=== PATIENT | female | born 1995 | race Caucasian/White ===

== ENCOUNTER 2016-04-03 12:46 | Emergency (ER) | payer OTHER ==
--- NOTE | 2016-04-03 13:56 | ERRECORD ---
[facility] EMERGENCY RECORD HPI JAW PAIN (SatApr 04, 2016 02:28 AGRE) CHIEF COMPLAINT: Patient presents for evaluation of pain, to the jaw. HISTORIAN: History provided by patient, PAIN OVER BOTH SIDES OF HER JAW AND IT HURTS TO OPEN AND CLOSE. NO TRAUMA. THINKS MAYBE IT IS HER WISDOM TEETH COMING IN. ALSO HAS NASAL CONGESTION WITH CLEAR CORYZA AND FRONTAL HEADACHE. NO OTHER SYMPTOMS. SYMPTOMS BEGAN THIS MORNING. MECHANISM OF INJURY: Unknown mechanism. LOCATION: No localizing symptoms. QUALITY: Pain is dull in nature, described as aching. SEVERITY: Maximum severity of symptoms mild, Currently symptoms are mild. TIME COURSE: Gradual onset of symptoms, There has been no change in the patient's symptoms over time. ASSOCIATED WITH: No associated symptoms. EXACERBATED BY: Patient's condition exacerbated by movement, Patient's condition exacerbated by speaking. RELIEVED BY: Patient's condition relieved by nothing. ROS (SatApr 04, 2016 02:31 AGRE) CONSTITUTIONAL: Historian denies chills, denies fever, denies lethargy, denies malaise. EYES: Historian denies eye pain, denies eye redness. ENT: Historian reports rhinorrhea, denies sinus pain, denies sore throat. CARDIOVASCULAR: Historian denies chest pain, denies dyspnea on exertion. RESPIRATORY: Historian denies cough, denies shortness of breath. GI: Historian denies abdominal pain, denies nausea, denies vomiting. MUSCULOSKELETAL: Historian denies back pain, denies neck pain. SKIN: Negative skin review of systems, Historian denies skin changes, denies skin lesions. NEUROLOGIC: Historian reports headache, denies mental status changes. PSYCHIATRIC: Negative psychiatric review of systems, Historian denies anxiety. PAST MEDICAL HISTORY (12:55 MSPE) MEDICAL HISTORY: Flu vaccine not up to date, Tetanus immunization up to date, Pneumococcal vaccine not up to date, Past medical history includes cardiac history, arrhythmia, supraventricular tachycardia. FEMALE SURGICAL HISTORY: oral surgery, Surgical history of tonsillectomy. PSYCHIATRIC HISTORY: Psychiatric history includes, bipolar disorder. SOCIAL HISTORY: Patient drinks socially, Patient denies drug use, Patient currently uses tobacco, smokes cigarettes, occasional cigarette. &a-1R&a+25V*p+0X*y5636Y*c202B*c15G*c2P*p-0X&a-25V&a+1R Name: Haylie Muro : 1995 F20 MedRec: [id number] AcctNum: [id number] Prepared: SatApr 04, 2016 02:45 by Interface Page 1 of 3 pMD [facility] EMERGENCY RECORD KNOWN ALLERGIES No Known Drug Allergies CURRENT MEDICATIONS (12:52 MSPE) None VITAL SIGNS VITAL SIGNS: BP: 137/81, Pulse: 91, Resp: 18, Temp: 98.5 (Oral), Pain: 1-2, O2 sat: 98 on Room Air, Time: 04/03/2016 12:52. (12:52 MSPE) Resp: 17, Pain: 2, Time: 04/03/2016 13:45. (13:45 BDON) PHYSICAL EXAM CONSTITUTIONAL: Vital signs reviewed, Patient afebrile, Patient appears non toxic, Patient appears pain free, Patient alert and oriented to person, place and time, NURSES NOTES REVIEWED. (SatApr 04, 2016 02:32 AGRE) HEAD: Head exam included findings of head atraumatic, normocephalic. (SatApr 04, 2016 02:32 AGRE) EYES: Eye exam included findings of eyelids normal to inspection, Pupils equally round and reactive to light, Extraocular muscles intact, Conjunctiva normal, Sclera normal, no periorbital ecchymosis, no periorbital edema, no periorbital erythema. (SatApr 04, 2016 02:32 AGRE) ENT: Ear exam normal, tympanic membranes normal, Nose exam included findings of, turbinate mucosa discharge, ERYTHEMA AND SWELLING OF TURBINATES WITH CLEAR CORYZA, Pharynx exam normal, Uvula exam normal, Tonsil exam normal, Mouth exam normal, teeth normal, Sinus exam included findings of frontal sinuses with, Maxillary sinuses with, TENDERNESS OVER BILATERAL TMJ REGIONS WITHOUT SWELLING OR ERYTHEMA. (SatApr 04, 2016 02:32 AGRE) NECK: Neck exam included findings of normal range of motion, Thyroid normal, no meningeal signs, no tenderness. (SatApr 04, 2016 02:32 AGRE) RESPIRATORY CHEST: Respiratory and chest exam normal, Respiratory exam included findings of no respiratory distress, Breath sounds clear, No wheezing, No rales, No rhonchi, Breath sounds not diminished, Chest exam included findings of chest movement symmetrical. (SatApr 04, 2016 02:32 AGRE) CARDIOVASCULAR: Cardiovascular assessment normal, Cardiovascular exam included findings of heart rate regular rate and rhythm, Heart sounds normal. (SatApr 04, 2016 02:33 AGRE) BACK: Back exam included findings of normal inspection, range of motion normal. (SatApr 04, 2016 02:32 AGRE) UPPER EXTREMITY: Upper extremity exam included findings of inspection normal, Range of motion normal. (SatApr 04, 2016 02:32 AGRE) LOWER EXTREMITY: Lower extremity exam included findings of &a-1R&a+25V*p+0X*w6438H*c202B*c15G*c2P*p-0X&a-25V&a+1R Name: Haylie Muro : 1995 F20 MedRec: [id number] AcctNum: [id number] Prepared: SatApr 04, 2016 02:45 by Interface Page 2 of 3 pMD [facility] EMERGENCY RECORD inspection normal, Range of motion normal. (SatApr 04, 2016 02:32 AGRE) NEURO: Neuro exam normal, [place] coma scale 15, Neuro exam findings include patient oriented to person, place and time, Speech normal, Gait normal, Memory normal, Cranial nerves intact, no focal motor deficits, no focal sensory deficits, no cerebellar deficits, no nystagmus. (SatApr 04, 2016 02:32 AGRE) SKIN: Skin exam included findings of skin warm, dry, and normal in color. (SatApr 04, 2016 02:32 AGRE) PSYCHIATRIC: Psychiatric exam normal, Normal affect. (SatApr 04, 2016 02:32 AGRE) DOCTOR NOTES (SatApr 04, 2016 02:35 AGRE) TEXT: DISCUSSED WITH PATIENT FINDINGS ON EXAM, NO SIGNS OF DENTAL ABSCESS OR PAIN ON EXAM, FINDINGS OF URI, NEURO EXAM WNL, PAIN MANAGEMENT, NEED FOR FOLLOW UP. SHE EXPRESSED UNDERSTANDING AND AGREEMENT. PATIENT STATUS: Patient has improved since arrival to emergency department. PATIENT PLAN: The patient will be discharged. PROBLEM LIST No recorded problems DIAGNOSIS (13:31 AGRE) FINAL: PRIMARY: JAW PAIN, ADDITIONAL: Headache. PRESCRIPTION (13:33 AGRE) Motrin: TABLET : 600 mg : ORAL : Quantity: 1 Unit: tab(s) Route: ORAL Schedule: every 6 hours PRN Dispense: 30 May substitute. Refills: No Refills . NOTES: No Refills. DISPOSITION PATIENT: Disposition Type: Discharge, Disposition: *Discharge Home, Condition: Improved. (13:31 HELGA) Patient left the department. (13:52 RUBÉN) Duarte: HELGA=MD Milton, Darnell BDON=CEE Marrero, Tiffanie MSPE=CEE Rodríguez, Carlie &a-1R&a+25V*p+0X*h6347N*c202B*c15G*c2P*p-0X&a-25V&a+1R Name: Haylie Muro : 1995 F20 MedRec: [id number] AcctNum: [id number] Prepared: SatApr 04, 2016 02:45 by Interface Page 3 of 3 pMD MTDD
--- NOTE | 2016-04-03 14:02 | PICIS ---
[facility] EMERGENCY RECORD TRIAGE (SatApr 03, 2016 12:52 MSPE) TRIAGE NOTES: c/o pain and swelling to bilat. jaw; she thinks due to wisdom teeth. Also c/o "migraine headache". (SatApr 03, 2016 12:52 MSPE) PATIENT: NAME: Haylie Muro, AGE: 20, GENDER: female, : Sat 1995, TIME OF GREET: SatApr 03, 2016 12:46, PREFERRED LANGUAGE: Mohawk, ETHNICITY: Not or , ECODE BILLING MAP: [facility], SSN: [id number], Zip Code: [address], KG WEIGHT: 54.88, PHONE: , , , PERSON ID: [id number], PCP: Jaylen LOPEZ ROLAND. (SatApr 03, 2016 12:52 MSPE) COMPLAINT: DENTAL PAIN,MIGRAINE. (SatApr 03, 2016 12:52 MSPE) ADMISSION: URGENCY: 4 Non Urgent, ADMISSION SOURCE: Home, TRANSPORT: CAR, BED: ER -04. (SatApr 03, 2016 12:52 MSPE) TRIAGE SCREENING: Patient denies suicidal ideation, Patient denies presence of domestic violence. (12:55 MSPE) LMP: Last menstrual period: 03/21/2016. (12:55 MSPE) TREATMENTS IN PROGRESS: Treatments given Prehospital: Motrin 800mg at 1100. (12:55 MSPE) PROVIDERS: TRIAGE NURSE: Carlie Rodríguez RN. (SatApr 03, 2016 12:52 MSPE) VITAL SIGNS: BP 137/81, Pulse 91, Resp 18, Temp 98.5, (Oral), Pain 1-2, O2 Sat 98, on Room Air, Time 04/03/2016 12:52. (12:52 MSPE) KNOWN ALLERGIES No Known Drug Allergies CURRENT MEDICATIONS (12:52 MSPE) None VITAL SIGNS VITAL SIGNS: BP: 137/81, Pulse: 91, Resp: 18, Temp: 98.5 (Oral), Pain: 1-2, O2 sat: 98 on Room Air, Time: 04/03/2016 12:52. (12:52 MSPE) Resp: 17, Pain: 2, Time: 04/03/2016 13:45. (13:45 BDON) NURSING ASSESSMENT: DENTAL (12:56 MSPE) CONSTITUTIONAL: Patient arrives ambulatory, Gait steady, History obtained from patient, Patient appears comfortable, Patient cooperative, Patient alert, Oriented to person, place and time, Skin warm, Skin dry, Skin normal in color. PAIN: tender pain, to left lower back tooth (teeth), to right lower back tooth (teeth), pt sts gums feel "a little swollen". DENTAL: Associated with. NURSING ASSESSMENT: HEADACHE (12:57 MSPE) PAIN: temporal headache. HEADACHE: Notes: reports dizziness, nausea and light sensitivity two days ago; improved today. &a-1R&a+25V*p+0X*y2146F*c202B*c15G*c2P*p-0X&a-25V&a+1R Name: Haylie Muro : 1995 F20 MedRec: [id number] AcctNum: [id number] Prepared: SatApr 04, 2016 02:51 by Interface Page 1 of 5 pMD [facility] EMERGENCY RECORD NURSING PROCEDURE: DISCHARGE NOTE (13:45 BDON) DISCHARGE: Patient discharged to home, ambulating without assistance, driving self, unaccompanied, Summary of Care printed/ provided, Patient requested and was provided an electronic copy of Discharge Instructions, Transition record given to patient, Discharge instructions given to patient, Simple or moderate discharge teaching performed, Above person(s) verbalized understanding of discharge instructions and follow-up care, Patient treated and evaluated by physician. VITAL SIGNS: Resp: 17, Pain: 2. HPI JAW PAIN (SatApr 04, 2016 02:28 AGRE) CHIEF COMPLAINT: Patient presents for evaluation of pain, to the jaw. HISTORIAN: History provided by patient, PAIN OVER BOTH SIDES OF HER JAW AND IT HURTS TO OPEN AND CLOSE. NO TRAUMA. THINKS MAYBE IT IS HER WISDOM TEETH COMING IN. ALSO HAS NASAL CONGESTION WITH CLEAR CORYZA AND FRONTAL HEADACHE. NO OTHER SYMPTOMS. SYMPTOMS BEGAN THIS MORNING. MECHANISM OF INJURY: Unknown mechanism. LOCATION: No localizing symptoms. QUALITY: Pain is dull in nature, described as aching. SEVERITY: Maximum severity of symptoms mild, Currently symptoms are mild. TIME COURSE: Gradual onset of symptoms, There has been no change in the patient's symptoms over time. ASSOCIATED WITH: No associated symptoms. EXACERBATED BY: Patient's condition exacerbated by movement, Patient's condition exacerbated by speaking. RELIEVED BY: Patient's condition relieved by nothing. ROS (SatApr 04, 2016 02:31 AGRE) CONSTITUTIONAL: Historian denies chills, denies fever, denies lethargy, denies malaise. EYES: Historian denies eye pain, denies eye redness. ENT: Historian reports rhinorrhea, denies sinus pain, denies sore throat. CARDIOVASCULAR: Historian denies chest pain, denies dyspnea on exertion. RESPIRATORY: Historian denies cough, denies shortness of breath. GI: Historian denies abdominal pain, denies nausea, denies vomiting. MUSCULOSKELETAL: Historian denies back pain, denies neck pain. SKIN: Negative skin review of systems, Historian denies skin changes, denies skin lesions. NEUROLOGIC: Historian reports headache, denies mental status changes. PSYCHIATRIC: Negative psychiatric review of systems, Historian denies anxiety. &a-1R&a+25V*p+0X*s5413X*c202B*c15G*c2P*p-0X&a-25V&a+1R Name: Haylie Muro : 1995 F20 MedRec: [id number] AcctNum: [id number] Prepared: SatApr 04, 2016 02:51 by Interface Page 2 of 5 pMD [facility] EMERGENCY RECORD PAST MEDICAL HISTORY (12:55 MSPE) MEDICAL HISTORY: Flu vaccine not up to date, Tetanus immunization up to date, Pneumococcal vaccine not up to date, Past medical history includes cardiac history, arrhythmia, supraventricular tachycardia. FEMALE SURGICAL HISTORY: oral surgery, Surgical history of tonsillectomy. PSYCHIATRIC HISTORY: Psychiatric history includes, bipolar disorder. SOCIAL HISTORY: Patient drinks socially, Patient denies drug use, Patient currently uses tobacco, smokes cigarettes, occasional cigarette. PHYSICAL EXAM CONSTITUTIONAL: Vital signs reviewed, Patient afebrile, Patient appears non toxic, Patient appears pain free, Patient alert and oriented to person, place and time, NURSES NOTES REVIEWED. (SatApr 04, 2016 02:32 AGRE) HEAD: Head exam included findings of head atraumatic, normocephalic. (SatApr 04, 2016 02:32 AGRE) EYES: Eye exam included findings of eyelids normal to inspection, Pupils equally round and reactive to light, Extraocular muscles intact, Conjunctiva normal, Sclera normal, no periorbital ecchymosis, no periorbital edema, no periorbital erythema. (SatApr 04, 2016 02:32 AGRE) ENT: Ear exam normal, tympanic membranes normal, Nose exam included findings of, turbinate mucosa discharge, ERYTHEMA AND SWELLING OF TURBINATES WITH CLEAR CORYZA, Pharynx exam normal, Uvula exam normal, Tonsil exam normal, Mouth exam normal, teeth normal, Sinus exam included findings of frontal sinuses with, Maxillary sinuses with, TENDERNESS OVER BILATERAL TMJ REGIONS WITHOUT SWELLING OR ERYTHEMA. (SatApr 04, 2016 02:32 AGRE) NECK: Neck exam included findings of normal range of motion, Thyroid normal, no meningeal signs, no tenderness. (SatApr 04, 2016 02:32 AGRE) RESPIRATORY CHEST: Respiratory and chest exam normal, Respiratory exam included findings of no respiratory distress, Breath sounds clear, No wheezing, No rales, No rhonchi, Breath sounds not diminished, Chest exam included findings of chest movement symmetrical. (SatApr 04, 2016 02:32 AGRE) CARDIOVASCULAR: Cardiovascular assessment normal, Cardiovascular exam included findings of heart rate regular rate and rhythm, Heart sounds normal. (SatApr 04, 2016 02:33 AGRE) BACK: Back exam included findings of normal inspection, range of motion normal. (SatApr 04, 2016 02:32 AGRE) UPPER EXTREMITY: Upper extremity exam included findings of inspection normal, Range of motion normal. (SatApr 04, 2016 02:32 AGRE) LOWER EXTREMITY: Lower extremity exam included findings of &a-1R&a+25V*p+0X*n7306Y*c202B*c15G*c2P*p-0X&a-25V&a+1R Name: Haylie Muro Caroline : 1995 F20 MedRec: [id number] AcctNum: [id number] Prepared: SatApr 04, 2016 02:51 by Interface Page 3 of 5 pMD [facility] EMERGENCY RECORD inspection normal, Range of motion normal. (SatApr 04, 2016 02:32 AGRE) NEURO: Neuro exam normal, [place] coma scale 15, Neuro exam findings include patient oriented to person, place and time, Speech normal, Gait normal, Memory normal, Cranial nerves intact, no focal motor deficits, no focal sensory deficits, no cerebellar deficits, no nystagmus. (SatApr 04, 2016 02:32 AGRE) SKIN: Skin exam included findings of skin warm, dry, and normal in color. (SatApr 04, 2016 02:32 AGRE) PSYCHIATRIC: Psychiatric exam normal, Normal affect. (SatApr 04, 2016 02:32 AGRE) EVENTS TRANSFER: Triage to Emergency Emergency Room -04. (SatApr 03, 2016 12:52 MSPE) Removed from Emergency Emergency Room -04. (13:52 BDON) DOCTOR NOTES (SatApr 04, 2016 02:35 AGRE) TEXT: DISCUSSED WITH PATIENT FINDINGS ON EXAM, NO SIGNS OF DENTAL ABSCESS OR PAIN ON EXAM, FINDINGS OF URI, NEURO EXAM WNL, PAIN MANAGEMENT, NEED FOR FOLLOW UP. SHE EXPRESSED UNDERSTANDING AND AGREEMENT. PATIENT STATUS: Patient has improved since arrival to emergency department. PATIENT PLAN: The patient will be discharged. PROBLEM LIST No recorded problems DIAGNOSIS (13:31 AGRE) FINAL: PRIMARY: JAW PAIN, ADDITIONAL: Headache. DISPOSITION PATIENT: Disposition Type: Discharge, Disposition: *Discharge Home, Condition: Improved. (13:31 AGRE) Patient left the department. (13:52 BDON) INSTRUCTION (13:35 AGRE) DISCHARGE: HEADACHE, UNSPECIFIED, UPPER RESP INFECTION NO ANTIBIOTIC TREATMENT ADULT, DENTAL PAIN. FOLLOWUP: Jaylen LOPEZ, [facility], [address] [place] [address], ([facility] [address], . SPECIAL: START TAKING AIR BORNE FOR THE CONGESTION. TAKE MOTRIN FOR PAIN. TAKE NYQUIL AT NIGHT TIME FOR CONTROL OF COUGH AND CONGESTION. SEE YOUR PHYSICIAN IF NOT BETTER IN 3 DAYS. SEE A PHYSICIAN SOONER IF WORSENING OR IF NEW SYMPTOMS DEVELOP. PRESCRIPTION (13:33 AGRE) Motrin: TABLET : 600 mg : ORAL : Quantity: 1 Unit: &a-1R&a+25V*p+0X*d9453J*c202B*c15G*c2P*p-0X&a-25V&a+1R Name: Haylie Muro : 1995 F20 MedRec: [id number] AcctNum: [id number] Prepared: SatApr 04, 2016 02:51 by Interface Page 4 of 5 pMD [facility] EMERGENCY RECORD tab(s) Route: ORAL Schedule: every 6 hours PRN Dispense: 30 May substitute. Refills: No Refills . NOTES: No Refills. IMAGING *DISCHARGE INSTRUCTIONS RECEIPT: Image captured from scanner. (13:51 BDON) *SUPPLY CHARGE SHEET: Image captured from scanner. (13:52 BDON) ADMIN DIGITAL SIGNATURE: CEE Marrero Bettye. (13:52 BDON) MD Rose Andrea. (SatApr 04, 2016 02:36 AGRE) Duarte: AGRE=MD Rose Andrea BDON=CEE Marrero Bettye MSPE=CEE Rodríguez, Carlie &a-1R&a+25V*p+0X*j0952V*c202B*c15G*c2P*p-0X&a-25V&a+1R Name: Haylie Muro : 1995 F20 MedRec: [id number] AcctNum: [id number] Prepared: SatApr 04, 2016 02:51 by Interface Page 5 of 5 pMD MTDD
== END 2016-04-03 13:45 | disposition home or self-care (01) ==
LOC: NAV ERS 12:46
DX: R68.84 Jaw pain (principal); R51 Headache; F31.9 Bipolar disorder, unspecified; Z72.0 Tobacco use
CPT/HCPCS: 99283